=== PATIENT | male | born 1995 | race Caucasian/White ===

== ENCOUNTER 2016-05-27 10:00 | Outpatient (RCR) | payer OTHER ==
[~2016-05-27 10:00] MED LIST: ADDERALL30 MG PO; CEPHALEXIN500 M1 PO; CLARITIN-D 10 M1 T24 PO; NORCO 325 MG-51 TAB PO
== END 2016-08-12 | disposition still patient (30) ==
LOC: WSOT
DX: S69.82XD Other specified injuries of left wrist, hand and finger(s), subsequent encounter (principal); X58.XXXD Exposure to other specified factors, subsequent encounter